=== PATIENT | male | born 1995 | race Caucasian/White ===

== ENCOUNTER 2020-12-17 18:24 | Emergency (ER) | payer OTHER, SELFPAY ==
--- NOTE | ~2020-12-17 | XR_ITS ---
EXAMINATION: XR clavicle RT INDICATION: Right shoulder pain, initial encounter TECHNIQUE: Two views of the right clavicle are obtained. COMPARISON: None available FINDINGS: There is an acute, traumatic, closed, comminuted fracture at the junction of the middle and distal thirds of the clavicle. The distal fracture fragment is caudally displaced and overriding by approximately 3 cm. Soft tissue swelling surrounds the fracture. No additional acute osseous abnormal ity is identified. IMPRESSION: 1. Comminuted, displaced and overriding right clavicle fracture. Reviewed, dictated and finalized at location A. OGRAPHY/MAPPING TECHNICIAN
[2020-12-17 18:33] VITALS: BP 148/78; PULSE 88; RESP 18; TEMP 36.6; O2SAT 100
[2020-12-17] MEDS: HYDROcodone/acetaminophen (*CRX) 5-325 MG TABLET 1 TAB PO (19:00)
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
[2020-12-17 19:35] VITALS: BP 131/71; PULSE 78; RESP 18; O2SAT 99
== END 2020-12-17 19:35 | disposition home or self-care (01) ==
PROVIDERS: Emergency Provider Emergency Medicine; PCP Physician Assistant Medical
DX: S42.021A Displaced fracture of shaft of right clavicle, initial encounter for closed fracture (principal); V86.56XA Driver of dirt bike or motor/cross bike injured in nontraffic accident, initial encounter
CPT/HCPCS: 73000; 99284; A4565; A9270

== ENCOUNTER → 2020-12-19 02:39 | Outpatient (CLI) | payer OTHER, SELFPAY ==
[2020-12-19 22:46] LABS: SARS-CoV-2 RNA PCR Negative
== END ==
PROVIDERS: PCP Physician Assistant Medical; Visit Provider Orthopaedic Surgery
DX: Z01.812 Encounter for preprocedural laboratory examination (principal); Z20.822 Contact with and (suspected) exposure to COVID-19
CPT/HCPCS: C9803; U0003; U0005

== ENCOUNTER 2020-12-21 00:42 | Day surgery (SDC) | payer OTHER, SELFPAY ==
[2020-12-19 14:48] VITALS: BMI 26.4
--- NOTE | 2020-12-20 13:20 | WPDANESEPPF ---
Anes - Initial Pre Proc Eval Procedure: Operation Date: 12/21/20 07:30 Proposed Procedures p Open Reduction Internal Fixation, Right Clavicle - Arjun Modi MD Date/Time: 12/20/20 13:20 Surgeon: Arjun Modi MD Pre Op Diagnosis: Right Clavicle Fx Patient Data Age: 25 Gender: M Height: 1.8 m Weight: 86 kg Allergies Allergy/AdvReac Type Severity Reaction Status Date / Time Penicillins Allergy Mild Rash Verified 12/21/20 06:06 Home Medications Medication Instructions Recorded Confirmed Type hydrocodone-acetaminophen 1 tablet PO Q6H PRN #20 tablet 12/17/20 12/21/20 Rx ibuprofen 400 mg PO Q6H PRN 12/19/20 12/21/20 History Patient hx anesthesia problems: none Family hx anesthesia problems: none PMFSH Past Medical History Medical History History of tibial fracture x2 Surgical History Surgical History History of adenoidectomy Social History Social History Smoking packs per day: 1 Smoking cigarettes per day: 20.0 Years smoked: 5 Smoking pack-years: 5.00 Smoking status: Former smoker Tobacco type: cigarettes Smoking end date: 04/12/16 Alcohol intake: current Drinks per week: 20 Alcohol use details: BEER Substance use: never Living arrangements: alone Gender identity (if verbalized by the patient): Male Spiritual care concerns: No Anes - Eval Final PreProcedure Day of Procedure 12/20/20 13:20 Patient weight: normal Heart: regular rate and rhythm Lungs: clear to auscultation and normal air movement Airway: Mallampati scale class II Neurological: alert and oriented Last oral intake: >/= 8 hours ASA classification: I Emergent: no Anesthetic plan: proceed Anesthesia type and monitoring: general ETT Informed Consent: The patient's anesthetic plan and its attendant risks and benefits were discussed with the patient/family/POA. Questions were solicited and answers provided to the satisfaction of the patient/family/POA.
[2020-12-21] VITALS (9 sets, daily range): BP systolic 118–137; BP diastolic 51–77; PULSE 54–84; RESP 12–19; TEMP 36.4–36.7; O2SAT 94–100
--- NOTE | ~2020-12-21 | XR_ITS ---
EXAMINATION: XR surgery orthopedic EXAM DATE: 12/21/2020 10:40 INDICATION: Right clavicular ORIF. TECHNIQUE: Single frontal intraoperative image of the right clavicle was obtained. There is no prio r study for comparison. FINDINGS: Endotracheal tube is in position. There is a mildly comminuted fracture through the right clavicular shaft with dorsally located plate, 7 supporting screws. Alignment is anatomic. IMPRESSION: Status post right clavicular ORIF. Reviewed, dictated and finalized at location B. WRITER
[2020-12-21] MEDS: ACETAMINOPHEN 500 MG TABLET 1000 MG PO (06:33)
[2020-12-21] MEDS: LACTATED RINGERS 1,000 ML 30 ML IV CONT ×2 (06:46→11:14)
[2020-12-21] MEDS: KETOROLAC 15 MG/ML VIAL (*BKC) IV PUSH (06:48)
--- NOTE | 2020-12-21 07:25 | WPDHPUPDATE1 ---
History and Physical Update Update Date/Time: 12/21/20 07:25 History and Physical has been reviewed, including an updated exam of the patient. There are NO changes in the patient's condition. Risks, benefits, and alternatives have been discussed and questions answered. Patient agrees to proceed with procedure.
[2020-12-21] MEDS: ceFAZolin 2 GM/D5W 50 ML 2 GM/50 ML BAG IVPB (07:43)
--- NOTE | 2020-12-21 07:46 | WPDANESPNB ---
Anes - Peripheral Nerve Block Date/Time: 12/21/20 07:46 I have discussed with the patient/family/POA the placement of a peripheral nerve block for post-operative pain management, including associated risks, benefits, complications, and side effects. Alternative methods of post-operative analgesia were detailed. Questions were solicited and answers provided to the satisfaction of the patient/family/POA. Time-Out: A pre-procedural Time-Out was completed immediately before starting the procedure and confirmed: Patient Identification, Site, Procedure, Patient Position and the Availability of Requisite Equipment. Clinical Indications: Acute post-operative pain management requested by the operative surgeon. Nerve Block Insertion Note Anes-nerve block: interscalene (10cc) right and other (right ruperficial cervical plexus - 10cc) Patient position: supine Skin prep: chlorhexidine Needle: 22 gauge, stimulating, insulated echogenic needle. Needle length: 80 mm Technique: ultrasound (in plane) Injectate: bupivacaine 0.5% with epi 5 mcg/ml (20cc) Observations: tolerated well Complications: none Procedure start time:: 730 Procedure end time::
--- NOTE | 2020-12-21 11:37 | PM.PROC ---
Procedure Note - Detailed Date of procedure: 12/21/20 Pre-op diagnosis: Right Clavicle Fx Post-op diagnosis: same Procedure performed: Open reduction and internal fixation right clavicle comminuted midshaft fracture. Implants: Accu Med clavicle plate with compression and locking screws. [facility] Surgeon: Arjun Modi MD Professor Of Environmental Studies: Jo Pink PA-C Estimated blood loss (mL): 75 Pathology: none sent Complications: No immediate complications Condition: stable Disposition: PACU Findings: Physician physiotherapist's assistant, Jo Pink PA-C, required for surgery; including patient positioning, draping, tissue retraction, maintaining instrument position, assisting with fracture reduction and hardware positioning, wound closure, and dressing placement. Preoperative antibiotics were given. General anesthetic was administered. He was clear carefully placed in the beach chair position at 40?. The head was carefully supported. Transverse incision across the clavicle fracture was created. Blunt dissection through the subcutaneous tissues with Metzenbaum scissors. Two subcutaneous nerve branches were identified and protected. The fracture was highly comminuted. Significant soft tissue stripping evident. There were 3 large butterfly fragments. The 1st anterior lateral the 2nd anteroinferior medial and 3rd inferior posterior medial. Provisional fixation was obtained with pointed reduction clamps. Anatomic reduction was obtained of the main fragments. There was contact superiorly. The plate fit very nicely without contouring. Combination of compression and locking screws were placed. Compression was obtained through the plate. Excellent bone quality and rigid fixation obtained. The comminuted fragments were repaired with 3, #2 Ethibond suture wrapped around the bone and plate. The wound was irrigated copiously. Careful closure with 2-0 Vicryl and 3-0 Monocryl in the deep tissues. The subcutaneous tissues were closed with 3-0 Monocryl, and 4-0 Monocryl. Steri-Strips were applied. A sterile dressing placed. A sling applied and the patient extubated and brought to the recovery room in stable condition. Estimated blood loss 75 mL. No complications.
== END 2020-12-21 13:30 | disposition home or self-care (01) ==
PROVIDERS: PCP Physician Assistant Medical; Visit Provider Orthopaedic Surgery
PROC: (CPT 23515; principal; 2020-12-21 07:30)
DX: S42.021A Displaced fracture of shaft of right clavicle, initial encounter for closed fracture (principal); G89.18 Other acute postprocedural pain; Z87.891 Personal history of nicotine dependence; V29.88XA Motorcycle rider (driver) (passenger) injured in other specified transport accidents, initial encounter
CPT/HCPCS: 23515; 64415; A4565; A9270; C1713; C1769; C9803; J0330; J0690; J1100; J1885; J2250; J2405; J2704; J3010; J7120; U0003; U0005

== ENCOUNTER 2024-04-20 14:44 | Emergency (ER) | payer OTHER, SELFPAY ==
--- NOTE | 2024-04-20 14:54 | ED.GENADULT ---
HPI - General Adult General Chief complaint: Dental/Oral Stated complaint: jaw pain/numbness Time Seen by Provider: 04/20/24 14:55 Source: patient, RN notes reviewed and old records reviewed Mode of arrival: ambulatory Limitations: no limitations History of Present Illness HPI narrative: [age] male presents to the [facility] with complaints right pain since Friday or Friday 3-4 days. Patient denies any dental issues, denies any trauma. Reports that it is intermittently been numb. Facial symmetry noted. No redness, no dental issues noted. Unable to reproduce pain with palpation. No ENT symptoms. Related Data Allergies Allergy/AdvReac Type Severity Reaction Status Date / Time Penicillins Allergy Mild Rash Verified 04/20/24 15:04 Review of Systems Review of Systems: All systems reviewed & are unremarkable except as noted in HPI and below Constitutional: Constitutional: Reports no additional constitutional complaints Eyes: Eyes: Reports no additional eye complaints ENT: Reports as per HPI Cardiovascular: Cardiovascular: Reports no additional cardiovascular complaints, Denies chest pain and Denies dyspnea Respiratory: Respiratory: Reports no additional respiratory complaints, Denies chest congestion, Denies cough and Denies dyspnea Gastrointestinal: Gastrointestinal: Reports no additional gastrointestinal complaints, Denies abdominal pain, Denies nausea and Denies vomiting Musculoskeletal: Musculoskeletal: Reports no additional musculoskeletal complaints Integumentary/Breasts: Skin/Breast: Reports system reviewed and no additional complaints, except as docu Neurologic: Reports system reviewed and no additional complaints, except as documented Psychiatric: Psychiatric: Reports no additional psychiatric complaints Allergic/Immunologic: Allergic/Immunologic: Reports no additional allergic/immunologic complaints PMFSH Past Medical History Medical History History of tibial fracture x2 Surgical History Surgical History History of adenoidectomy Social History Social History Smoking packs per day: 1 Smoking cigarettes per day: 20.0 Years smoked: 5 Smoking pack-years: 5.00 Smoking status: Former smoker Tobacco type: cigarettes Smoking end date: 04/12/16 Alcohol intake: current Drinks per week: 20 Alcohol use details: BEER Substance use: never Living arrangements: alone Gender identity (if verbalized by the patient): Male Spiritual care concerns: No Comments At the time of my signature, I reviewed and agree with the nursing past medical, surgical, social, and family history. There is no relevant family history pertinent to the patient complaint. Exam Const: General: cooperative, healthy appearing, comfortable, no acute distress, well developed, alert and well nourished Nutritional Appearance: well nourished Orientation/consciousness: patient oriented x3 Limitations: no limitations HENMT: Head: normal to inspection Ears: hearing grossly normal bilaterally, external ears normal, TM's normal bilaterally, EAC's normal, mastoids normal and no periauricular adenopathy Face/Nose/Sinus: Normal external nose present, Normal nares present, Normal nasal mucous membranes and turbinates present, normal facial exam, sinuses nontender, face symmetric, No abrasion, No crepitus, No ecchymosis, No erythema and No maxillary instability Face and sinus: normal facial exam, face symmetric, no ecchymosis and no erythema Mouth: Yes Normal oral and palatal mucosa present, Yes lip normal, Yes tongue normal, Yes oropharynx normal and Yes moist mucous membranes Throat: posterior oropharynx normal, tonsils normal, uvula midline and no uvular edema Eyes: General: appearance normal, both eyes and all related structures Alignment and Position: align
[2024-04-20 14:55] VITALS: BP 135/75; PULSE 80; RESP 14; TEMP 36.8; O2SAT 100
== END 2024-04-20 15:13 | disposition home or self-care (01) ==
PROVIDERS: Emergency Provider Nurse Practitioner
DX: R68.84 Jaw pain (principal); Z87.891 Personal history of nicotine dependence
CPT/HCPCS: 99213; G0463